=== PATIENT | male | born 1970 | race Caucasian/White ===

== ENCOUNTER 2017-05-19 15:52 | Inpatient (IN) | payer MEDICARE ==
[~2017-05-19] VITALS: Ht 182.9 cm; Wt 70.3 kg
[2017-05-19] MEDS ORDERED: PALI39DI IM (16:01)
[2017-05-19 16:21] LABS: BASOPHILS # (AUTO) 0.04 K/uL (0.00-0.20); BASOPHILS % (AUTO) 0.7 % (0.0-2.0); EOSINOPHILS # (AUTO) 0.07 K/uL (0.00-0.70); EOSINOPHILS % (AUTO) 1.32 % (1.0-6.0); HEMATOCRIT 46.8 % (41-53); HEMOGLOBIN 15.4 g/dL (13.5-17.5); LYMPHOCYTES # (AUTO) 1.7 K/uL (1.0-4.8); LYMPHOCYTES % (AUTO) 31.8 % (22.0-44.0); MEAN CORPUSCULAR HEMOGLOBIN 29.5 pg (26.0-34.0); MEAN CORPUSCULAR HGB CONC 32.8 G/dL (31.0-37.0); MEAN CORPUSCULAR VOLUME 90 fL (80-100); MONOCYTES # (AUTO) 0.5 K/uL (0.1-1.0); MONOCYTES % (AUTO) 9.6 % (2.0-9.0); NEUTROPHILS % (AUTO) 56.6 % (40.0-70.0); PLATELET COUNT (AUTO) 228 K/uL (150-450)
[2017-05-19 16:31] LABS: ANION GAP 4 mmol/L (8-16); CALCIUM, TOTAL 9.2 mg/dL (8.8-10.5); CARBON DIOXIDE 29 mmol/L (22-29); CHLORIDE 104 mmol/L (98-107); CREATININE 0.83 mg/dL (0.60-1.30); GLOMERULAR FILTR. RATE CALC > 60 mL/min (>60); GLUCOSE,RANDOM 112 mg/dL (70-110); POTASSIUM 3.6 mmol/L (3.5-5.1); SODIUM SERUM 137 mmol/L (136-145); UREA NITROGEN, BLOOD 10 mg/dL (7-18)
[2017-05-19 16:36] LABS: ALANINE AMINOTRANSFERASE 122 U/L (12-78); ALBUMIN 4.2 g/dL (3.4-5.0); ALKALINE PHOSPHATASE 92 U/L (46-116); ASPARTATE AMINOTRANSFERASE 37 U/L (15-37); BILIRUBIN,TOTAL 1.1 mg/dL (0.1-1.0); PLATELET MORPHOLOGY COMMENT LARGE PLTS PRESENT; TOTAL PROTEIN, SERUM 8.2 g/dL (6.4-8.2)
[2017-05-19 17:15] LABS: AMPHET/METH SCREEN,URINE NEGATIVE (NEGATIVE); BARBITURATE SCREEN, URINE NEGATIVE (NEGATIVE); BENZODIAZEPINES SCREEN,URINE NEGATIVE (NEGATIVE); CANNABINOID SCREEN,URINE NEGATIVE (NEGATIVE); COCAINE SCREEN,URINE NEGATIVE (NEGATIVE); METHADONE SCREEN, URINE NEGATIVE (NEGATIVE); OPIATE SCREEN,URINE NEGATIVE (NEGATIVE); PHENCYCLIDINE SCREEN,URINE NEGATIVE (NEGATIVE)
[2017-05-19] MEDS ORDERED: HALOPERIDOL LACTATE 5 MG/ML VIAL IM ONE (18:45)
[2017-05-19] MEDS ORDERED: LORazepam 2 MG/ML VIAL IM ONE (18:45)
[2017-05-19] MEDS ORDERED: LORazepam 2 MG TABLET PO PRN (19:15)
[2017-05-19] MEDS ORDERED: ZOLPIDEM TARTRATE 10 MG TABLET PO PRN (19:15)
[2017-05-19] MEDS ORDERED: HALOPERIDOL 5 MG TABLET PO PRN (19:15)
[2017-05-19 21:17] VITALS: BP 118/90
[2017-05-19] MEDS ORDERED: INFLUENZA VIRUS VACCINE QVS 2017-18 (3YR+)/PF 60 MCG/0.5 ML SYRINGE IM ONE (21:45)
[2017-05-19 23:15] VITALS: BP 121/79
[2017-05-20 05:49] VITALS: BP 124/80
[2017-05-20 08:40] VITALS: BP 108/62
[2017-05-20 09:29] LABS: CHOL/HDL RATIO 8.1 (4.2-7.3)
[2017-05-20 16:35] VITALS: BP 113/77
[2017-05-20] MEDS ORDERED: IBUPROFEN 400 MG TABLET PO PRN (20:00)
[2017-05-20] MEDS ORDERED: ACETAMINOPHEN 325 MG TABLET PO PRN (20:00)
[2017-05-20] MEDS: RisperiDONE 1 MG TABLET PO SCH (20:09)
[2017-05-20] MEDS ORDERED: RisperiDONE 1 MG TABLET PO SCH (21:00)
[2017-05-21 01:26] VITALS: BP 123/81
[2017-05-21] MEDS: RisperiDONE 1 MG TABLET PO SCH ×2 (08:18→20:47)
[2017-05-21 09:05] VITALS: BP 124/83
[2017-05-21 16:32] VITALS: BP 112/77
[2017-05-22 05:33] VITALS: BP 112/73
[2017-05-22 08:09] VITALS: BP 118/71
[2017-05-22] MEDS: RisperiDONE 1 MG TABLET PO SCH (09:12)
[2017-05-22 16:28] VITALS: BP 120/84
[2017-05-22] MEDS: RisperiDONE 2 MG TABLET PO SCH (20:26)
[2017-05-23 00:45] VITALS: BP 110/62
[2017-05-23 08:06] VITALS: BP 117/86
[2017-05-23] MEDS: RisperiDONE 2 MG TABLET PO SCH (09:28)
[2017-05-23] MEDS ORDERED: RISP2 PO (13:28)
== END 2017-05-23 15:00 | disposition home or self-care (01) | DRG 885 ==
LOC: EMS 15:54 → B2S 19:34
PROVIDERS: ADMIT Psychiatry & Neurology Child & Adolescent Psychiatry; ATTEND Psychiatry & Neurology Child & Adolescent Psychiatry
DX: F20.0 Paranoid schizophrenia (principal); R45.851 Suicidal ideations; R74.0 Nonspecific elevation of levels of transaminase and lactic acid dehydrogenase [LDH]; K75.89 Other specified inflammatory liver diseases; E78.5 Hyperlipidemia, unspecified; R73.9 Hyperglycemia, unspecified; Z28.21 Immunization not carried out because of patient refusal
CPT/HCPCS: 90471; 96372; 99285; G0480; J1630; J2060